=== PATIENT | female | born 1970 | race Two or more races ===

== ENCOUNTER 2016-09-11 19:42 | Emergency (ER) | payer MEDICAID ==
[~2016-09-11] VITALS: Ht 157.5 cm; Wt 70.8 kg
[~2016-09-11 19:42] MED LIST: FERROUS SULFAT325 MG ORAL; IBUPROFEN600 MG ORAL; LEVOTHYROXINE150 MCG ORAL; METFORMIN HCL1000 M1 ORAL
[2016-09-11 20:00] VITALS: BP 115/72
[2016-09-11] MEDS ORDERED: Mylanta II UD 30ml ORAL ONE (20:00)
[2016-09-11] MEDS ORDERED: Dicyclomine HCl 10mg/5ml oral soln ORAL ONE (20:00)
[2016-09-11] MEDS ORDERED: Lidocaine 2% Visc 15ml soln ORAL ONE (20:00)
[2016-09-11] MEDS ORDERED: OMEPRAZOLE20 M3 ORAL (20:08)
[2016-09-11] MEDS ORDERED: IBUPROFEN600 MG ORAL (20:08)
[2016-09-11] MEDS ORDERED: LEVOTHYROXINE150 MCG ORAL (20:08)
[2016-09-11] MEDS ORDERED: ZANTAC150 MG ORAL (20:08)
[2016-09-11] MEDS ORDERED: ROBAXIN-750750 MG PO (20:08)
[2016-09-11 20:30] VITALS: BP 115/72
--- NOTE | 2016-09-11 20:44 | Emergency Room Report ---
History of Present Illness General Chief Complaint: Lower Back Pain or Injury Source: Patient Present Illness [facility] The patient is a 46-year-old female presenting for acid reflux and back pain. The patient states that she has been feeling acid reflux for the past month intermittently. She describes a 7/10 burning sensation to the mid chest and throat after eating. Pain does not radiate. She has not tried any medications yet. The patient is also complaining of left lower back pain which began last year after a work-related injury. She states she was diagnosed with a muscle strain. This pain is described as a 5/10 dull ache and is worse with movement such as twisting. She has not tried any medications. Pain does not radiate. Denies other symptoms including abdominal pain, nausea, vomiting, fever, chills , dysuria, hematuria, vaginal discharge Allergies: Coded Allergies: No Known Allergies (Unverified , 07/21/15) Patient History Past Medical History: see triage record Pertinent Family History: none Last Menstrual Period: 2 WEEKS AGO Now: No Reviewed Nursing Documentation: PMH: Agreed, PSxH: Agreed Nursing Documentation-PMH Hx Cardiac Problems: No Hx Hypertension: No Hx Pacemaker: No Hx Asthma: No Hx COPD: No Hx Diabetes: Yes Hx Cancer: Yes - THYROID CANCER 2004 Hx Dialysis: No Hx Cerebrovascular Accident: No Hx Seizures: No Review of Systems All Other Systems: negative except mentioned in HPI Physical Exam Vital Signs Date Time Temp Pulse Resp B/P Pulse Ox O2 Delivery O2 Flow Rate FiO2 09/11/16 19:46 98.2 63 18 112/69 97 Room Air Sp02 EP Interpretation: reviewed, normal General Appearance: no apparent distress, alert, GCS 15, non-toxic Head: normocephalic, atraumatic Eyes: bilateral eye PERRL, bilateral eye normal inspection ENT: hearing grossly normal, normal pharynx, no angioedema, normal voice Neck: full range of motion, supple/symm/no masses Respiratory: chest non-tender, lungs clear, normal breath sounds, speaking full sentences Cardiovascular #1: regular rate, rhythm, no edema Gastrointestinal: normal bowel sounds, non tender, soft, non-distended, no guarding, no rebound Musculoskeletal: back normal, gait/station normal, normal range of motion, non- tender, tender - L lumbar paraspinous muscles Neurologic: alert, oriented x3, responsive, motor strength/tone normal, sensory intact, speech normal Psychiatric: judgement/insight normal, memory normal, mood/affect normal, no suicidal/homicidal ideation Skin: normal color, no rash, warm/dry, well hydrated Lymphatic: no adenopathy Medical Decision Making PA Attestation Dr. Saravia is my supervising physician. Patient management was discussed with my supervising physician Diagnostic Impression: Primary Impression: Hypothyroidism Qualified Codes: E03.9 - Hypothyroidism, unspecified Additional Impressions: Muscle strain GERD (gastroesophageal reflux disease) Qualified Codes: K21.9 - Gastro-esophageal reflux disease without esophagitis ER Course The patient is a 46-year-old female presenting for acid reflux and back pain. Differential diagnoses considered but not limited to: Acid reflux, esophagitis, gastritis, ACS, muscle strain, among others Physical exam: Vitals within normal limits HEENT exam unremarkable Lungs are clear to auscultation bilaterally RRR Abd soft non tender. No CVA tenderness TTP over the L paraspinous muscles only Normal gait The patient is given a GI cocktail and pain medication The patient is given a refill of levothyroxine for hypothyroidism. She'll be discharged home with a prescription for omeprazole, Zantac, Motrin, and Robaxin. She needs to follow up with PMD as soon as possible ER precautions given Last Vital Signs Date Time Temp Pulse Resp B/P Pulse Ox O2 Delivery O2 Flow Rate FiO2 09/11/16 20:30 98.2 78 16 115/72 99 Room Air Status: improved Disposition: HOME, SELF-CARE Condition: Improved Scripts Methocarbamol* (ROBAXIN-750*) 750 Mg Tablet 750 MG PO TID, #21 TAB 0 Refills Prov: TERZIAN,EMIGDIO P.A. 09/11/16 Ibuprofen* (MOTRIN*) 600 Mg Tablet 600 MG ORAL Q8H Y for For Pain, #30 TAB 0 Refills Prov: TERZIAN,EMIGDIO P.A. 09/11/16 Ranitidine Hcl* (ZANTAC*) 150 Mg Tablet 150 MG ORAL DAILY, #15 TAB 0 Refills Prov: TERZIAN,EMIGDIO P.A. 09/11/16 Omeprazole (OMEPRAZOLE) 20 Mg Tablet. 20 MG ORAL DAILY, #30 TAB Prov: TERZIAN,EMIGDIO P.A. 09/11/16 Levothyroxine Sodium* (LEVOTHYROXINE SODIUM*) 150 Mcg Tablet 150 MCG ORAL DAILY, #30 TAB Take in the morning on an empty stomach, at least 30 minutes before food. Prov: EMIGDIO ENGLE 09/11/16 Patient Instructions: Food Choices for Gastroesophageal Reflux Disease, Adult, Back Pain, Adult, Indigestion Additional Instructions: I discussed my findings with the patient. All questions and concerns have been answered. Treatment and medication compliance have been addressed. I advised the patient that they need to follow up with PMD in 3-5 days. Return to ED if symptoms worsen, new symptoms arise, or if needed for any reason. Patient verbalized understanding of discharge instructions. EMIGDIO ENGLE Sep 11, 2016 20:44
== END 2016-09-11 20:30 | disposition home or self-care (01) ==
LOC: EMR 20:07
DX: E03.9 Hypothyroidism, unspecified (principal); K21.9 Gastro-esophageal reflux disease without esophagitis; S39.012A Strain of muscle, fascia and tendon of lower back, initial encounter; X58.XXXA Exposure to other specified factors, initial encounter; Y93.9 Activity, unspecified; Y92.9 Unspecified place or not applicable; Y99.9 Unspecified external cause status; Z85.850 Personal history of malignant neoplasm of thyroid; E11.9 Type 2 diabetes mellitus without complications
CPT/HCPCS: 99284

== ENCOUNTER 2016-10-29 17:52 | Emergency (ER) | payer MEDICAID ==
[~2016-10-29] VITALS: Ht 160 cm; Wt 69.4 kg
[~2016-10-29 17:52] MED LIST changes: +OMEPRAZOLE20 M3 ORAL; +ROBAXIN-750750 MG PO; +ZANTAC150 MG ORAL
[2016-10-29] MEDS ORDERED: IRON325 M1 PO (18:19)
[2016-10-29 18:50] VITALS: BP 111/71
[2016-10-29 19:08] LABS: APPEARANCE,URINE SLIGHTLY CLOUDY; KETONES,URINE NEGATIVE (NEGATIVE); LEUKOCYTE ESTERASE ,URINE 2+ (NEGATIVE); NITRITE,URINE NEGATIVE (NEGATIVE); PH,URINE 5 (4.5-8.0); PROTEIN,URINE 2+ (NEGATIVE); UROBILINOGEN,URINE NORMAL MG/DL (0.0-1.0)
[2016-10-29 19:23] LABS: BACTERIA,URINE FEW /HPF; SQUAMOUS EPITHELIAL CELL,UR FEW /LPF (NONE/OCC); WBC,URINE 20-30 /HPF (0 - 2)
[2016-10-29] MEDS ORDERED: IBUPROFEN600 MG ORAL (19:35)
[2016-10-29] MEDS ORDERED: NITROFURANTOIN100 M2 ORAL (19:35)
[2016-10-29 19:40] VITALS: BP 111/71
--- NOTE | 2016-10-29 20:25 | Emergency Room Report ---
History of Present Illness General Chief Complaint: Female Urogenital Problems Source: Patient Present Illness HPI The patient is a 46-year-old female presenting for pain with urination. She states that this is a burning sensation. It began today. She also admits to increased urinary frequency. She denies hematuria or vaginal discharge. She denies any back pain. Pain is an 8/10 burning. Does not radiate. She denies any other symptoms including nausea, vomiting, fever, chills Allergies: Coded Allergies: No Known Allergies (Unverified , 07/21/15) Patient History Past Medical History: see triage record Pertinent Family History: none Last Menstrual Period: on period Reviewed Nursing Documentation: PMH: Agreed, PSxH: Agreed Nursing Documentation-PMH Past Medical History: No History, Except For Hx Hypertension: No Hx Pacemaker: No Hx Asthma: No Hx COPD: No Hx Diabetes: Yes Hx Cancer: Yes - THYROID CANCER 2003 Hx Dialysis: No Hx Cerebrovascular Accident: No Hx Seizures: No Review of Systems All Other Systems: negative except mentioned in HPI Physical Exam Vital Signs Date Time Temp Pulse Resp B/P Pulse Ox O2 Delivery O2 Flow Rate FiO2 10/29/16 18:15 97.9 69 16 111/71 99 Room Air Sp02 EP Interpretation: reviewed, normal General Appearance: no apparent distress, alert, GCS 15, non-toxic Head: normocephalic, atraumatic Eyes: bilateral eye PERRL, bilateral eye normal inspection ENT: hearing grossly normal, normal pharynx, no angioedema, normal voice Neck: full range of motion, supple/symm/no masses Gastrointestinal: normal bowel sounds, non tender, soft, non-distended, no guarding, no rebound Genitourinary: normal inspection, no CVA tenderness Musculoskeletal: back normal, gait/station normal, normal range of motion, non- tender Neurologic: alert, oriented x3, responsive, motor strength/tone normal, sensory intact, speech normal Psychiatric: judgement/insight normal, memory normal, mood/affect normal, no suicidal/homicidal ideation Skin: normal color, no rash, warm/dry, well hydrated Medical Decision Making PA Attestation Dr. Zhao is my supervising physician. Patient management was discussed with my supervising physician Diagnostic Impression: Primary Impression: Urinary tract infection Qualified Codes: N39.0 - Urinary tract infection, site not specified; R31.9 - Hematuria, unspecified ER Course The patient is a 46-year-old female presenting for pain with urination Differential diagnosis considered but not limited to: UTI, BV, yeast infection, pyelonephritis, PID, PE: Vitals WNL. NAD. Abdomen: Normal appearance. Non distended. No ecchymosis. Normal BS. no TTP. No McBurney point tenderness. No guarding. No CVA tenderness Urinalysis is consistent with urinary tract infection The patient discharged home with a prescription for Macrobid and is given ER precautions. Laboratory Tests Test 10/29/16 18:25 Urine Color Pale yellow Urine Appearance Slightly cloudy Urine pH 5 (4.5-8.0) Urine Specific [place] 1.010 (1.005-1.035) Urine Protein 2+ (NEGATIVE) H Urine Glucose (UA) 2+ (NEGATIVE) H Urine Ketones Negative (NEGATIVE) Urine Occult Blood 5+ (NEGATIVE) H Urine Nitrite Negative (NEGATIVE) Urine Bilirubin Negative (NEGATIVE) Urine Urobilinogen Normal MG/DL (0.0-1.0) Urine Leukocyte Esterase 2+ (NEGATIVE) H Urine RBC 2-4 /HPF (0 - 2) H Urine WBC 20-30 /HPF (0 - 2) H Urine Squamous Epithelial Cells Few /LPF (NONE/OCC) Urine Bacteria Few /HPF (NONE) Lab Results Impression UA: blood and WBCs with bacteria. Last Vital Signs Date Time Temp Pulse Resp B/P Pulse Ox O2 Delivery O2 Flow Rate FiO2 10/29/16 19:40 97.9 78 16 111/71 99 Room Air Status: improved Disposition: HOME, SELF-CARE Condition: Stable Scripts Ibuprofen* (MOTRIN*) 600 Mg Tablet 600 MG ORAL Q8H Y for For Pain, #30 TAB 0 Refills Prov: TERZIAN,EMIGDIO P.A. 10/29/16 Nitrofurantoin Monohyd/M-Cryst* (MACROBID 100 MG*) 100 Mg Capsule 100 MG ORAL EVERY 12 HOURS, #14 CAP Prov: TERZIAN,EMIGDIO P.A. 10/29/16 Referrals: NOT CHOSEN IPA/MD,REFERRING (PCP) Patient Instructions: Urinary Tract Infection Additional Instructions: I discussed my findings with the patient. All questions and concerns have been answered. Treatment and medication compliance have been addressed. I advised the patient that they need to follow up with PMD in 3-5 days. Return to ED if symptoms worsen, new symptoms arise, or if needed for any reason. Patient verbalized understanding of discharge instructions. EMIGDIO ENGLE Oct 29, 2016 20:25
== END 2016-10-29 19:40 | disposition home or self-care (01) ==
LOC: EMR 19:40
DX: N39.0 Urinary tract infection, site not specified (principal); E11.9 Type 2 diabetes mellitus without complications; Z85.850 Personal history of malignant neoplasm of thyroid
CPT/HCPCS: 81003; 87086; 87181; 99284

== ENCOUNTER 2017-11-08 00:34 | Emergency (ER) | payer MEDICAID ==
[~2017-11-08] VITALS: Ht 157.5 cm; Wt 68.9 kg
[~2017-11-08 00:34] MED LIST changes: +IRON325 M1 PO; +NITROFURANTOIN100 M2 ORAL
[2017-11-08] MEDS ORDERED: Norco 5mg/325mg tab ORAL ONE (01:45)
[2017-11-08] MEDS ORDERED: Lidocaine 2% Visc 15ml soln ORAL ONE (01:45)
[2017-11-08] MEDS ORDERED: NORCO 5-325 TA1 EACH ORAL (02:03)
[2017-11-08 02:10] VITALS: BP 118/74
[2017-11-08 02:18] VITALS: BP 118/74
--- NOTE | 2017-11-08 13:42 | Diagnostic Imaging Report ---
Indication: Shortness of breath Technique: One view of the chest Comparison: none Findings: Lungs and pleural spaces are clear. There is some atelectasis at the left lung base. The heart size is normal Impression: Left basilar atelectasis. No acute process otherwise This agrees with the preliminary interpretation provided by the emergency room physician
--- NOTE | 2017-11-15 05:29 | Emergency Room Report ---
History of Present Illness General Chief Complaint: Neck Pain Source: Patient Present Illness HPI The patient is a 47-year-old female who presented after increased neck pain. Patient recent surgery earlier in the day for septoplasty as well as partial thyroidectomy. The patient was noted to have increased pain subsequent. She did not prescribe any pain medications. Patient had not been having any fever. She reported having increased sore throat. She denied productive cough or shortness of breath. Allergies: Coded Allergies: No Known Allergies (Unverified , 07/21/15) Patient History Past Medical History: see triage record Reviewed Nursing Documentation: PMH: Agreed; PSxH: Agreed Nursing Documentation-PMH Hx Hypertension: No Hx Pacemaker: No Hx Asthma: No Hx COPD: No Hx Diabetes: Yes Hx Cancer: Yes - THYROID CANCER 2003 Hx Dialysis: No Hx Cerebrovascular Accident: No Hx Seizures: No Review of Systems All Other Systems: negative except mentioned in HPI Physical Exam General Appearance: well appearing, no apparent distress, alert, GCS 15 Head: normocephalic, atraumatic ENT: hearing grossly normal, normal voice Neck: full range of motion, supple Respiratory: no respiratory distress, speaking full sentences Cardiovascular #1: normal inspection, regular rate, rhythm, no edema Gastrointestinal: normal inspection, non tender, soft Genitourinary: normal inspection Musculoskeletal: normal inspection, no calf tenderness Neurologic: normal inspection, alert, oriented x3, normal gait Psychiatric: mood/affect normal Skin: no rash Medical Decision Making Diagnostic Impression: Primary Impression: Post-op pain ER Course The patient presented for postoperative pain. The differential diagnosis included was not limited to pneumothorax, hematoma, contusion among others. Patient has a benign exam and does not appear to require any laboratory testing at this time. Chest x-ray was ordered to evaluate for possible pneumothorax. Had chest x-ray one view interpreted by me showed normal cardiac size without evident infiltrate or pneumothorax. The patient given pain medications. She is advised follow-up with her surgeon. Status: improved Disposition: HOME, SELF-CARE Condition: Stable Scripts Hydrocodone Bit/Acetaminophen 5-325* (NORCO 5-325*) 1 Each Tablet 1 TAB ORAL Q6H PRN for For Pain, #10 TAB 0 Refills Prov: Seymour Moreno MD 11/08/17 Referrals: NOT CHOSEN IPA/MD,REFERRING Patient Instructions: Pain Medicine Instructions, [id number] Additional Instructions: Follow up with your surgeon as soon as possible. Seymour Moreno MD Nov 15, 2017 05:29
== END 2017-11-08 02:19 | disposition home or self-care (01) ==
LOC: EMR 01:16
DX: G89.18 Other acute postprocedural pain (principal); Z85.850 Personal history of malignant neoplasm of thyroid
CPT/HCPCS: 71045; 99283

== ENCOUNTER 2020-02-13 06:13 | Emergency (ER) | payer MEDICAID ==
[~2020-02-13] VITALS: Ht 157.5 cm; Wt 72.6 kg
[~2020-02-13 06:13] MED LIST changes: +CEPHALEXIN500 MG ORAL; +NORCO 5-325 TA1 EACH ORAL
--- NOTE | 2020-02-13 06:28 | NUR ---
ED Nurse Note: Patient walked into ED from home for c/o increased urination, polydipsia and chills for the past three days. Patient does have hx of diabetes. She also reports bilat leg cramps. She is aaox4, breathing is normal and unlabored. Patient placed in bed, IV line established. Blood drawn by RN and sent to lab. Safety measures in place.
[2020-02-13 06:30] VITALS: BP 142/77
--- NOTE | 2020-02-13 07:02 | Emergency Room Report ---
History of Present Illness General Chief Complaint: General Complaint Source: Patient Present Illness HPI Patient is a 49-year-old female past medical history of hypothyroidism status post thyroidectomy in 2003 for thyroid cancer at [facility] and diabetes who presents to the ER complaining of generalized weakness. Patient complains of 3 days of increased thirst and urination. She states that she had intermittent palpitations but denies any chest pain or shortness of breath. She denies any fever or chills. She denies any abdominal pain, dysuria or hematuria. Patient complains of some nausea.` Allergies: Coded Allergies: No Known Allergies (Unverified , 07/21/15) COVID-19 Screening Contact w/high risk pt: No Experienced COVID-19 symptoms?: No COVID-19 Testing performed FASHION CONSULTANT: No Patient History Last Menstrual Period: 01/11/2020 Now: No : 4 Para: 4 Reviewed Nursing Documentation: PMH: Agreed; PSxH: Agreed Nursing Documentation-PMH Past Medical History: No History, Except For Hx Hypertension: No Hx Pacemaker: No Hx Asthma: No Hx COPD: No Hx Diabetes: Yes Hx Cancer: Yes - THYROID CANCER 2003 Hx Dialysis: No Hx Cerebrovascular Accident: No Hx Seizures: No Review of Systems All Other Systems: negative except mentioned in HPI Physical Exam Vital Signs Date Time Temp Pulse Resp B/P (MAP) Pulse Ox O2 Delivery O2 Flow Rate FiO2 02/13/20 06:14 97.3 87 18 142/77 (98) 96 Room Air Sp02 EP Interpretation: reviewed, normal General Appearance: no apparent distress, alert, GCS 15, non-toxic Head: normocephalic, atraumatic Eyes: bilateral eye normal inspection, bilateral eye PERRL ENT: hearing grossly normal, normal pharynx, no angioedema, normal voice, dry mucus membranes Neck: full range of motion, supple/symm/no masses Respiratory: chest non-tender, lungs clear, normal breath sounds, speaking full sentences Cardiovascular #1: normal inspection Gastrointestinal: normal bowel sounds, non tender, soft, non-distended, no guarding, no rebound Rectal: deferred Genitourinary: no CVA tenderness Musculoskeletal: normal range of motion, no calf tenderness Neurologic: facilities director III-XII nml as tested, oriented x3 Psychiatric: no suicidal/homicidal ideation Skin: no rash Lymphatic: no adenopathy Medical Decision Making Diagnostic Impression: Primary Impression: UTI (urinary tract infection) Additional Impression: Anemia ER Course Patient given IV fluids. On reevaluation she states that the fluids improved her symptoms. Patient has anemia with hemoglobin of 11. Vital signs are stable. Patient's urine demonstrates evidence for UTI. Patient given Rocephin IV. Patient discharged home with Macrobid. After discussing risks and benefits of further diagnostics, treatment plans, as well as indications for and risks of admission, the patient is agreeable to being discharged home. I have explained that their evaluation and treatment in the emergency department today is an important step towards them achieving better health but that their evaluation today is not intended to replace further evaluation and treatment by a physician in their local clinic. I have explained that while the current findings suggest no immediate life threatening emergency they will require further evaluation and treatment by a physician of their choice in their area. They understand that it will be necessary for them to review the final reports of their ED visit with their clinic physician. We have reviewed indications for return to the Emergency Department. I have explained that additional time may need to pass and/or additional testing as an outpatient may be necessary before a definitive diagnosis can be made. They tell me they are willing to follow up as instructed within the timeframe I recommend. They appear to understand what we discussed. Additionally they understand that if they are unable to be seen by an outpatient physician they are welcome, and in fact should, return to the Emergency Department for a repeat evaluation. The patient is stable at time of discharge. Laboratory Tests Test 02/13/20 06:44 02/13/20 07:39 02/13/20 08:24 White Blood Count 5.5 K/UL (4.8-10.8) Red Blood Count 4.92 M/UL (4.20-5.40) Hemoglobin 11.1 G/DL (12.0-16.0) L Hematocrit 34.4 % (37.0-47.0) L Mean Corpuscular Volume 70 FL (80-99) L Mean Corpuscular Hemoglobin 22.6 PG (27.0-31.0) L Mean Corpuscular Hemoglobin Concent 32.3 G/DL (32.0-36.0) Red Cell Distribution Width 16.7 % (11.6-14.8) H Platelet Count 154 K/UL (150-450) Mean Platelet Volume 8.9 FL (6.5-10.1) Neutrophils (%) (Auto) 64.6 % (45.0-75.0) Lymphocytes (%) (Auto) 28.0 % (20.0-45.0) Monocytes (%) (Auto) 6.2 % (1.0-10.0) Eosinophils (%) (Auto) 0.7 % (0.0-3.0) Basophils (%) (Auto) 0.4 % (0.0-2.0) Urine Color Pale yellow Urine Appearance Clear Urine pH 7 (4.5-8.0) Urine Specific [place] 1.005 (1.005-1.035) Urine Protein Negative (NEGATIVE) Urine Glucose (UA) 1+ (NEGATIVE) H Urine Ketones Negative (NEGATIVE) Urine Blood Negative (NEGATIVE) Urine Nitrite Negative (NEGATIVE) Urine Bilirubin Negative (NEGATIVE) Urine Urobilinogen Normal MG/DL (0.0-1.0) Urine Leukocyte Esterase 3+ (NEGATIVE) H Urine RBC 0 /HPF (0 - 2) Urine WBC 5-10 /HPF (0 - 2) H Urine Squamous Epithelial Cells Few /LPF (NONE/OCC) Urine Bacteria None /HPF (NONE) Urine HCG, Qualitative Negative (NEGATIVE) Sodium Level 138 MMOL/L (136-145) Potassium Level 3.5 MMOL/L (3.5-5.1) Chloride Level 104 MMOL/L (98-107) Carbon Dioxide Level 26 MMOL/L (21-32) Anion Gap 8 mmol/L (5-15) Blood Urea Nitrogen 10 mg/dL (7-18) Creatinine 0.9 MG/DL (0.55-1.30) Estimated Glomerular Filtration Rate > 60 mL/min (>60) Glucose Level 185 MG/DL (74-106) H Calcium Level 8.4 MG/DL (8.5-10.1) L Magnesium Level 2.1 MG/DL (1.8-2.4) Total Bilirubin 0.5 MG/DL (0.2-1.0) Aspartate Amino Transferase (AST) 71 U/L (15-37) H Alanine Aminotransferase (ALT) 123 U/L (12-78) H Alkaline Phosphatase 75 U/L (46-116) Total Creatine Kinase 68 U/L (26-308) Troponin I 0.003 ng/mL (0.000-0.056) Total Protein 7.8 G/DL (6.4-8.2) Albumin 3.9 G/DL (3.4-5.0) Globulin 3.9 g/dL Albumin/Globulin Ratio 1.0 (1.0-2.7) Lipase 174 U/L (73-393) Thyroid Stimulating Hormone (TSH) 1.136 uiU/mL (0.358-3.740) Free Thyroxine 1.44 NG/DL (0.76-1.46) Urine Opiates Screen Negative (NEGATIVE) Urine Barbiturates Screen Negative (NEGATIVE) Phencyclidine (PCP) Screen Negative (NEGATIVE) Urine Amphetamines Screen Negative (NEGATIVE) Urine Benzodiazepines Screen Negative (NEGATIVE) Urine Cocaine Screen Negative (NEGATIVE) Urine Marijuana (THC) Screen Negative (NEGATIVE) Acetone Level Negative (NEGATIVE) Venous Blood pH 7.358 Venous Blood Partial Pressure CO2 44.1 Venous Blood Partial Pressure O2 19.8 Venous Blood HCO3 24.2 Venous Blood Base Excess -1.3 Venous Blood Carboxyhemoglobin 1.3 % (0.5-1.5) Methemoglobin 1.0 Arterial Blood pH 7.420 (7.350-7.450) Arterial Blood Partial Pressure CO2 33.5 mmHg (35.0-45.0) L Arterial Blood Partial Pressure O2 96.9 mmHg (75.0-100.0) Arterial Blood HCO3 21.2 mmol/L (22.0-26.0) L Arterial Blood Oxygen Saturation 96.8 % (95-100) Arterial Blood Base Excess -2.6 (-2-2) L Brendan Test Positive EKG Diagnostic Results Troponin ordered: Yes When was troponin ordered?: Feb 13, 2020 EKG Time: 06:55 EP Interpretation: Ruma Gilbert MD Rate: normal - 80 bpm Rhythm: NSR ST Segments: no acute changes ASA given to the pt in ED: No Rhythm Strip Diag. Results Rhythm Strip Time: 07:02 EP Interpretation: yes - Ruma Gilbert MD Rate: 80 bpm Rhythm: NSR, no PVC's, no ectopy Chest X-Ray Diagnostic Results Chest X-Ray Diagnostic Results : Chest X-Ray Ordered: Yes # of Views/Limited/Complete: 1 View Indication: Other - palpitations EP Interpretation: Yes Interpretation: no consolidation, no effusion, no pneumothorax, no acute cardiopulmonary disease Impression: No acute disease Electronically Signed by: Ruma Gilbert MD Last Vital Signs Date Time Temp Pulse Resp B/P (MAP) Pulse Ox O2 Delivery O2 Flow Rate FiO2 02/13/20 06:30 97.3 87 18 142/77 96 Room Air Disposition: HOME, SELF-CARE Condition: Stable Scripts Nitrofurantoin Monohyd/M-Cryst* (MACROBID 100 MG*) 100 Mg Capsule 100 MG ORAL EVERY 12 HOURS for 7 Days, CAP Prov: Ruma Gilbert M.D. 02/13/20 Referrals: NON PHYSICIAN (PCP) Additional Instructions: The patient was provided with discharge instructions, notified to follow-up with a primary care doctor and or specialist in the next 24-48 hours, and to return to the ED if they have worsening of their symptoms. Please note that this report is being documented using [employer] technology. This can lead to erroneous entry secondary to incorrect interpretation by the dictating instrument. Ruma Gilbert M.D. Feb 13, 2020 07:02
--- NOTE | 2020-02-13 07:02 | NUR ---
HAND-OFF: Report given to JENNIFER Camp and endorsed plan of care.
--- NOTE | 2020-02-13 07:08 | Diagnostic Imaging Report ---
EXAM: XR Chest, 1 View CLINICAL HISTORY: AMS TECHNIQUE: Frontal view of the chest. COMPARISON: November 08, 2017. FINDINGS: Lungs: Unremarkable. No consolidation. Pleural space: Unremarkable. No pneumothorax. Heart: Unremarkable. No cardiomegaly. Mediastinum: Unremarkable. Bones/joints: Unremarkable. IMPRESSION: No acute cardiopulmonary process.
[2020-02-13 07:25] LABS: BASOPHILS % (AUTO) 0.4 % (0.0-2.0); EOSINOPHILS % (AUTO) 0.7 % (0.0-3.0); HEMATOCRIT 34.4 % (37.0-47.0); HEMOGLOBIN 11.1 G/DL (12.0-16.0); MEAN CORPUSCULAR VOLUME 70 FL (80-99); MONOCYTES % (AUTO) 6.2 % (1.0-10.0); NEUTROPHILS % (AUTO) 64.6 % (45.0-75.0); PLATELET COUNT 154 K/UL (150-450); RED BLOOD COUNT 4.92 M/UL (4.20-5.40); RED CELL DISTRIBUTION WIDTH 16.7 % (11.6-14.8); WHITE BLOOD COUNT 5.5 K/UL (4.8-10.8)
--- NOTE | 2020-02-13 07:35 | NUR ---
ED Nurse Note: Latest accucheck taken with 163mg/dl, notified ERMD. VBG sample obtained, called RT.
[2020-02-13 07:39] LABS: APPEARANCE,URINE CLEAR; BILIRUBIN, URINE NEGATIVE (NEGATIVE); COLOR,URINE PALE YELLOW; GLUCOSE, URINE (UA) 1+ (NEGATIVE); KETONES,URINE NEGATIVE (NEGATIVE); LEUKOCYTE ESTERASE ,URINE 3+ (NEGATIVE); NITRITE,URINE NEGATIVE (NEGATIVE); PH,URINE 7 (4.5-8.0); PROTEIN,URINE NEGATIVE (NEGATIVE); UROBILINOGEN,URINE NORMAL MG/DL (0.0-1.0)
[2020-02-13] MEDS ORDERED: cefTRIAXone 1 GM in NS 55 ML IVPB ONE (08:00)
[2020-02-13 08:03] LABS: ANION GAP 8 mmol/L (5-15); BLOOD UREA NITROGEN 10 mg/dL (7-18); CALCIUM 8.4 MG/DL (8.5-10.1); CARBON DIOXIDE 26 MMOL/L (21-32); CHLORIDE 104 MMOL/L (98-107); CREATININE 0.9 MG/DL (0.55-1.30); POTASSIUM 3.5 MMOL/L (3.5-5.1); SODIUM 138 MMOL/L (136-145)
[2020-02-13 08:07] LABS: ALANINE AMINOTRANSFERASE 123 U/L (12-78); ALBUMIN 3.9 G/DL (3.4-5.0); ALKALINE PHOSPHATASE 75 U/L (46-116); ASPARTATE AMINO TRANSFERASE 71 U/L (15-37); BILIRUBIN,TOTAL 0.5 MG/DL (0.2-1.0)
[2020-02-13 08:21] LABS: CREATINE KINASE 68 U/L (26-308)
--- NOTE | 2020-02-13 08:24 | NUR ---
ED Nurse Note: RT at bedside at [facility].
--- NOTE | 2020-02-13 08:32 | NUR ---
ED Nurse Note: pt was taken to CT.
--- NOTE | 2020-02-13 09:16 | Diagnostic Imaging Report ---
EXAM: CT Head Without Intravenous Contrast CLINICAL HISTORY: DIZZY TECHNIQUE: Axial computed tomography images of the head/brain without intravenous contrast. CTDI is 53.40 mGy and DLP is 965.40 mGy-cm. One or more of the following dose reduction techniques were used: automated exposure control, adjustment of the mA and/or kV according to patient size, use of iterative reconstruction technique. COMPARISON: No relevant prior studies available. FINDINGS: No acute intracranial hemorrhage. No midline shift or mass effect. The territorial sharma-white matter differentiation is maintained throughout. Nonspecific calcification in the right parietal lobe measuring approximately 6 mm. This may represent a granuloma. The ventricles and sulci are commensurate with age. The visualized orbits appear grossly unremarkable. The calvarium is intact. The visualized paranasal sinuses and mastoid air cells are grossly clear. IMPRESSION: No acute intracranial hemorrhage, midline shift, or mass effect.
[2020-02-13] MEDS ORDERED: NITROFURANTOIN100 M2 ORAL (09:28)
[2020-02-13 09:37] VITALS: BP 144/79
--- NOTE | 2020-02-13 09:37 | NUR ---
ER DISCHARGE NOTE: Patient is cleared to be discharged per ERMD, pt is aox4, on room air, with stable vital signs. pt was given dc and prescription instructions, pt was able to verbalize understanding, pt id band and iv site removed without complications. pt is able to ambulate with steady gait. pt took all belongings.
--- NOTE | 2020-02-14 15:52 | Cardiology Report ---
APPROVED REPORT EKG Measurement Heart [id number] <Conclusion> Normal sinus rhythm Low voltage QRS Borderline ECG
== END 2020-02-13 09:37 | disposition home or self-care (01) ==
LOC: EMR 06:32
DX: N39.0 Urinary tract infection, site not specified (principal); D64.9 Anemia, unspecified; E11.9 Type 2 diabetes mellitus without complications; Z85.850 Personal history of malignant neoplasm of thyroid
CPT/HCPCS: 36415; 70450; 71045; 80053; 80307; 81003; 81025; 82009; 82550; 82803; 82962; 83690; 83735; 84439; 84443; 84484; 85025; 87040; 93005; 96361; 96365; J0696; Z7502; 99284